=== PATIENT | male | born 1995 | race Caucasian/White ===

== ENCOUNTER 2022-10-25 01:34 | Observation (INO) | payer SELFPAY ==
[2022-10-25 01:52] VITALS: BMI 22.4
[2022-10-25] MEDS ORDERED: Morphine 4 MG/ML VIAL SLOW IVP PRN (02:26)
[2022-10-25] MEDS ORDERED: Piperacillin/Tazobactam 3.375 GM in Sodium Chloride 0.9% 100 ML IVPB SCH (02:30)
[2022-10-25] MEDS: Lactated Ringer's 1,000 ML IV SCH ×2 (03:05→09:47)
[2022-10-25] MEDS: Ketorolac Tromethamine 30 MG/ML VIAL IVP SCH ×3 (03:07→15:41)
[2022-10-25] MEDS: Piperacillin/Tazobactam 3.375 GM in Sodium Chloride 0.9% 100 ML IVPB SCH ×2 (05:13→15:28)
[2022-10-25] MEDS ORDERED: Bupivacaine/Epinephrine 0.25% 30 ML VIAL ONE (14:21)
[2022-10-25] MEDS ORDERED: fentaNYL PF 100 MCG/2 ML SYRINGE ONE (14:31)
[2022-10-25] MEDS ORDERED: SUGAMMADEX SODIUM 200 MG/2 ML VIAL ONE (14:31)
[2022-10-25] MEDS ORDERED: Piperacillin/Tazobactam 3.375 GM VIAL ONE (14:31)
[2022-10-25] MEDS ORDERED: Midazolam HCl 2 mg/2 ml Vial ONE (14:32)
[2022-10-25] MEDS ORDERED: Albuterol HFA (OR) 200 PUFF INH ONE ×2 (14:32→14:40)
[2022-10-25] MEDS ORDERED: Sodium Chloride 0.9% 100 ML ONE (14:32)
[2022-10-25] MEDS ORDERED: Ondansetron PF 4 MG/2 ML Vial ONE (14:40)
[2022-10-25] MEDS ORDERED: Dexamethasone 20 MG/5 ML VIAL ONE (14:40)
[2022-10-25] MEDS ORDERED: Lidocaine 1% PF 5 ML VIAL ONE (14:40)
[2022-10-25] MEDS ORDERED: PROPOFOL 200 MG/20 ML VIAL ONE (14:40)
[2022-10-25] MEDS ORDERED: Rocuronium Bromide 10 MG/ML (10ML VIAL) ONE (14:40)
[2022-10-25] MEDS ORDERED: Succinylcholine 200 MG/10 ml SYRINGE FS ONE (14:40)
[2022-10-25] MEDS ORDERED: Ketorolac Tromethamine 30 MG/ML VIAL ONE (14:40)
[2022-10-25] MEDS ORDERED: traMADol HCl 50 MG TAB PO PRN (15:49)
[2022-10-25] MEDS ORDERED: Ibuprofen 200 MG TAB PO PRN (15:57)
[2022-10-25] MEDS ORDERED: fentaNYL 50 mcg/mL 1 mL Vial ONE ×2 (15:59→16:16)
[2022-10-25] MEDS ORDERED: Acetaminophen 325 MG TAB PO SCH (16:00)
[2022-10-25 17:45] VITALS: BP 111/68; TEMP 97.2
[2022-10-25] MEDS ORDERED: traMADol HCl 50 MG TAB PO SCH (18:00)
== END 2022-10-25 20:25 | disposition home or self-care (01) ==
LOC: SURG A 01:38
PROVIDERS: ADMIT Specialist; ATTEND Specialist
PROC: 0DTJ4ZZ Resection of Appendix, Percutaneous Endoscopic Approach (ICD-10-PCS; principal; 2022-10-25)
DX: K35.80 Unspecified acute appendicitis (principal); J45.909 Unspecified asthma, uncomplicated; Z90.49 Acquired absence of other specified parts of digestive tract
CPT/HCPCS: 88304; 96365; 96375; 96376; C1889; G0378; J1100; J1885; J2250; J2270; J2405; J2543; J2704; J3010; J3490; J7120